=== PATIENT | female | born 1960 | race Caucasian/White ===

== ENCOUNTER 2018-08-30 16:25 | Inpatient (IN) ==
[2018-08-30] MEDS ORDERED: Loratadine 10 MG TABLET PO PRN (17:32)
[2018-08-30] MEDS ORDERED: MOM Conc 10 ML UD.LIQ PO PRN (17:32)
[2018-08-30] MEDS ORDERED: DICLOFENAC SODIUM TP PRN (17:32)
[2018-08-30] MEDS: *HR* OxyCODONE Immed Rel 5 MG TABLET PO PRN (20:29)
[2018-08-30] MEDS: traZODone 50 MG TABLET PO PRN (20:29)
[2018-08-30] MEDS: *HR* Enoxaparin 40 MG/0.4 ML SYRINGE SQ SCH (20:29)
[2018-08-31] MEDS: *HR* OxyCODONE Immed Rel 5 MG TABLET PO PRN ×3 (05:01→18:04)
[2018-08-31 05:54] LABS: Basophils % 0.6 %; Eosinophils # 0.2 K/mcL (0.0-0.6); Eosinophils % 3.2 %; Hematocrit 28.7 % (35.3-44.9); Hemoglobin 9.4 g/dL (11.5-15.4); Immature Granulocytes % 1.3 % (0-4); Lymphocytes # 1.4 K/mcL (0.6-4.6); Lymphocytes % 22.7 %; Mean Corpuscular HGB Conc 32.8 g/dL (31.6-35.5); Mean Corpuscular Hemoglobin 28.8 pg (28.0-33.3); Mean Platelet Volume 10.2 fL (9.4-12.4); Monocytes # 0.8 K/mcL (0.0-1.3); Neutrophils # 3.7 K/mcL (1.6-8.9); Platelet Count 230 K/mcL (140-400); Red Blood Count 3.26 M/mcL (3.82-4.97); Red Cell Distribution Width 14.3 % (11.5-14.5); Segmented Neutrophils % 59.2 %
[2018-08-31 06:10] LABS: Calcium 8.4 mg/dL (8.6-10.3); Carbon Dioxide 29 mEq/L (23-29); Chloride 100 mEq/L (98-107); Potassium 3.8 mEq/L (3.5-5.1); Sodium 134 mEq/L (136-145); eGFR For Non-African Americans > 60 (> 60)
[2018-08-31 06:15] LABS: BUN/Creatinine Ratio 22 (6-26); Blood Urea Nitrogen 14 mg/dL (6-20); Glucose 111 mg/dL (70-105); Osmolality,Calculated 279 (280-300)
--- NOTE | 2018-08-31 12:02 | Internal Med History&Physical ---
Date of Encounter: 08/31/18 Time of Encounter: 12:00 Assessment and Plan (1) Status post total hip replacement, left Current visit: Yes Status: Acute We will proceed with therapy assessment and plan. Advised that she elevate her leg when possible because of swelling. (2) Stage 2 chronic kidney disease Current visit: No Status: Chronic Patient denies. (3) Acute blood loss anemia Current visit: Yes Status: Acute This looks stable and is associated with good vital signs. She received 1 unit of transfusion, postoperatively. (4) Depression Current visit: No Status: Chronic Controlled on current medical regimen. Qualifiers: Depression Type: unspecified Qualified Code(s): F32.9 - Major depressive disorder, single episode, unspecified (5) Migraine Current visit: No Status: Chronic Treated with when necessary sumatriptan and rarely uses, anymore. Qualifiers: Migraine type: unspecified Status migrainosus presence: without status migrainosus Intractability: not intractable Qualified Code(s): G43.909 - Migraine, unspecified, not intractable, without status migrainosus Internal Medicine - H&P: HPI Admitted From: Hospital to Hospital Transfer Plans for Post Hospital Care: Home History of present illness: Ms. Rush is a 58 year old female who was in her usual state of health until 5 days ago when she fell on the ice. She had a hip fracture and this was repaired with a total hip replacement by Dr. Tariq at [facility]. Postoperative course was complicated by low blood pressure, anemia requiring transfusion of 1 unit, but no other problems. He is now transferred here for rehabilitation. Past Med Surg Social Fam HX - Past Medical History Medical history: GERD, migraine Psychiatric history: depression - Past Surgical History Surgical History: no surgical history - Social History Smoking Status: Never smoker Smokeless Tobacco Status: No Alcohol use: rarely Drug use: none - Family History Mother History Unknown: Yes Adopted: No Living Status: Still Living Hx Family Cardiac Disorders: Yes (HTN, STROKE) Hx Family Respiratory Disorders: No Hx Family Cancer: No Hx Family GI Disorders: No Hx Family Endocrine Disorder: No Hx Family Neuromuscular Disorders: No Hx Family Neurologic Disorders: No Hx Family HEENT Disorders: No Hx Family Autoimmune Disorders: No Internal Medicine - H&P: Meds Citalopram Hydrobromide [Citalopram HBr] 40 mg PO DAILY 08/26/18 [History] Diclofenac Sodium 1 applic TP QID PRN 08/26/18 [History] Loratadine [Allergy Relief] 10 mg PO DAILY PRN 08/26/18 [History] Omeprazole [PriLOSEC] 40 mg PO DAILY PRN 08/26/18 [History] Trazodone HCl 50 mg PO HS PRN 08/26/18 [History] Docusate [Colace] 100 mg PO BID capsule 08/28/18 [Rx] Enoxaparin [Lovenox] 30 mg SQ Q12HCO syringe 08/28/18 [Rx] Ferrous Sulfate 325 mg PO BIDWM #0 tablet 08/28/18 [Rx] MOM Conc [MILK OF MAGNESIA conc] 5 ml PO HS PRN ud.liq 08/28/18 [Rx] OxyCODONE Immed Rel [Roxicodone 5 MG] 5 mg PO Q6HR PRN 4 Days #15 tablet 08/28/18 [Rx] Allergy/AdvReac Type Severity Reaction Status Date / Time No Known Allergies Allergy Verified 08/26/18 11:30 All Systems PM: Patient states that she does not hear as well as she used to but does not wear hearing aids. She is told by her son-in-law that she has a possible sleep apnea but does not have a formal diagnosis and is to get a test, soon. She has occasional episodes of 2 hours or less of facial flushing and she is not sure what causes these. Patient has no complaint of chest discomfort, dyspnea, orthopnea, breathing problems, palpitations, nausea or vomiting, constipation or diarrhea, other changes in bowel habits, heartburn, difficulty with urination, kidney problems or kidney stones, fevers chills or sweats, rash or itching, seizures, headache or lightheadedness, heat or cold intolerance, blood problems or anemia, or other new complaints, except as mentioned above. Review of systems is otherwise negative. - Constitutional Vitals: Temp Pulse Resp BP Pulse Ox 98.6 F 97 18 135/74 99 08/31/18 11:49 08/31/18 11:49 08/31/18 11:49 08/31/18 11:49 08/31/18 11:49 Exam: Examination: (Except as mentioned above): General: In no apparent distress, alert and oriented 3. Head: Atraumatic and normocephalic. Eyes: Extraocular muscles are intact, pupils equal round and reactive to light and accommodation. Sclerae anicteric. Ears: External ears are normal to inspection and hearing is grossly normal. Nose: Patent without lesion noted. Mouth: No intraoral lesions seen. Dentition is unremarkable. Neck: Supple with trachea midline. There is no thyromegaly or adenopathy and carotids are 2+ without bruit heard. Respiratory: No use of accessory muscles. Lungs are clear throughout. Normal airflow. Cardiovascular: Regular rate and rhythm without murmur appreciated. Abdomen: Bowel sounds are normal. No hepatosplenomegaly masses or tenderness. Obese and therefore difficult to palpate deeply. Patient is examined upright in chair and this also limits exam. Extremities: No cyanosis clubbing but she does have 1+ diffuse edema on the left. She is not examined in terms of her wound, because of family present and the fact that she is sitting in chair. Neurological: A and O 3. Cranial nerves II through XII are intact. No focal deficits and no abnormal movements or postures. Skin: Warm and non-diaphoretic with no lesions noted. Breasts, pelvic and rectal: Not examined. Internal Med - H&P Results - Labs CBC & Chem 7: 08/31/18 05:25 08/31/18 05:25 Labs: Short CBC 08/31/18 Range/Units 05:25 WBC 6.2 (4.3-11.1) K/mcL Hgb 9.4 L (11.5-15.4) g/dL Hct 28.7 L (35.3-44.9) % Plt Count 230 (140-400) K/mcL Neutrophils # 3.7 (1.6-8.9) K/mcL BMP 08/31/18 05:25 Sodium 134 L Potassium 3.8 Chloride 100 Carbon Dioxide 29 BUN 14 Creatinine 0.65 Glucose 111 H Calcium 8.4 L
[2018-08-31] MEDS: *HR* Enoxaparin 40 MG/0.4 ML SYRINGE SQ SCH (21:11)
[2018-08-31] MEDS: traZODone 50 MG TABLET PO PRN (21:18)
[2018-09-01] MEDS: *HR* OxyCODONE Immed Rel 5 MG TABLET PO PRN ×2 (09:18→20:08)
--- NOTE | 2018-09-01 17:28 | Internal Med Progress Note ---
Date of Encounter: 09/01/18 Time of Encounter: 15:30 - Assessment and plan (1) Status post total hip replacement, left Current Visit: Yes Status: Acute Assessment and plan: Doing well and we will continue to work with therapies, etc. (2) Stage 2 chronic kidney disease Current Visit: No Status: Chronic Assessment and plan: Not present on current lab. (3) Acute blood loss anemia Current Visit: Yes Status: Acute Assessment and plan: Well-tolerated and clinically stable. (4) Depression Current Visit: No Status: Chronic Assessment and plan: No current signs or symptoms. Qualifiers: Depression Type: unspecified Qualified Code(s): F32.9 - Major depressive disorder, single episode, unspecified (5) Migraine Current Visit: No Status: Chronic Assessment and plan: None reported. Qualifiers: Migraine type: unspecified Status migrainosus presence: without status migrainosus Intractability: not intractable Qualified Code(s): G43.909 - Migraine, unspecified, not intractable, without status migrainosus - Subjective Interval history: Patient is without complaint. She is pleased that she moved her bowels. She still has fair amount of swelling in her left lower extremity. Patient has no complaint of chest discomfort, dyspnea, orthopnea, palpitations, nausea or vomiting, constipation or diarrhea, other changes in bowel habits, difficulty with urination, rash or itching, or other new complaints, except as mentioned above. Review of systems is otherwise negative. I discussed management of her care with nursing staff. - Constitutional Vitals: Temp Pulse Resp BP Pulse Ox 98.8 F 90 18 127/72 96 09/01/18 07:00 09/01/18 07:00 09/01/18 07:00 09/01/18 07:00 09/01/18 07:00 Exam: Examination: (Except as mentioned above): General: In no apparent distress. Alert and oriented 3. Nondiaphoretic. Head: Atraumatic and normocephalic. Respiratory: No use of accessory muscles. Lungs are clear throughout. Normal airflow. Cardiovascular: Regular rate and rhythm without murmur appreciated. Abdomen: Bowel sounds are normal. No hepatosplenomegaly mass or tenderness appreciated. Obese and therefore difficult to palpate deeply. Extremities: No cyanosis clubbing or significant edema. Wound site looks good w ithout any significant drainage, erythema, edema to suggest cellulitis, etc. Skin: Warm and non-diaphoretic with no new lesions noted. Internal Medicine: Result - Labs CBC & Chem 7: 08/31/18 05:25 08/31/18 05:25 Consult Discharge Plan - Plan Referrals: Betty Means MD [Primary Care Provider] -
[2018-09-01] MEDS: *HR* Enoxaparin 40 MG/0.4 ML SYRINGE SQ SCH (20:07)
[2018-09-02] MEDS: *HR* OxyCODONE Immed Rel 5 MG TABLET PO PRN ×4 (05:34→21:40)
[2018-09-02 05:49] LABS: Basophils # 0.1 K/mcL (0.0-0.2); Basophils % 0.7 %; Eosinophils # 0.3 K/mcL (0.0-0.6); Eosinophils % 3.5 %; Hematocrit 30.9 % (35.3-44.9); Hemoglobin 9.9 g/dL (11.5-15.4); Immature Granulocytes % 2.3 % (0-4); Lymphocytes # 1.7 K/mcL (0.6-4.6); Lymphocytes % 23.6 %; Mean Corpuscular Hemoglobin 28.4 pg (28.0-33.3); Mean Corpuscular Volume 88.5 fL (83.0-100.0); Mean Platelet Volume 9.9 fL (9.4-12.4); Monocytes % 13.4 %; Platelet Count 294 K/mcL (140-400); Red Blood Count 3.49 M/mcL (3.82-4.97); Red Cell Distribution Width 14.3 % (11.5-14.5); Segmented Neutrophils % 56.5 %
[2018-09-02 06:03] LABS: BUN/Creatinine Ratio 22 (6-26); Blood Urea Nitrogen 13 mg/dL (6-20); Calcium 8.7 mg/dL (8.6-10.3); Carbon Dioxide 28 mEq/L (23-29); Chloride 104 mEq/L (98-107); Glucose 114 mg/dL (70-105); Osmolality,Calculated 293 (280-300); Potassium 4.2 mEq/L (3.5-5.1); Sodium 141 mEq/L (136-145); eGFR For Non-African Americans > 60 (> 60)
--- NOTE | 2018-09-02 13:33 | Internal Med Progress Note ---
Addendum entered and electronically signed by Ralph Rebolledo MD 09/02/18 14:32: I have personally performed a face to face evaluation on this patient. I have r eviewed and agree with the care plan. History and Exam by me shows: Patient is doing well. She denies acute issues. We discussed going home later this week. She has more edema and has had her leg propped up on a small stool, on medication. I explained to her that she needs to have "toes higher than nose," several times a day. To this, she expressed surprise. Bowels have been moving well. Discussed care with other providers and/or nursing. Patient has no complaint of chest discomfort, dyspnea, orthopnea, palpitations, nausea or vomiting, constipation or diarrhea, other changes in bowel habits, difficulty with urination, rash or itching, or other new complaints, except as mentioned above. Review of systems is otherwise negative. Examination: (Except as mentioned above): General: In no apparent distress. Alert and oriented 3. Nondiaphoretic. Head: Atraumatic and normocephalic. Respiratory: No use of accessory muscles. Lungs are clear throughout. Normal airflow. Cardiovascular: Regular rate and rhythm without murmur appreciated. Abdomen: Bowel sounds are normal. No hepatosplenomegaly mass or tenderness appreciated. Obese and therefore difficult to palpate deeply. Extremities: No cyanosis clubbing or change in edema. She still has a fair amount of edema at the left lower extremity. Skin: Warm and non-diaphoretic with no new lesions noted. Original Note: Date of Encounter: 09/02/18 Time of Encounter: 13:30 - Assessment and plan (1) Status post total hip replacement, left Current Visit: Yes Status: Acute Assessment and plan: Continue PT and OT. Will follow progress. Continue current pain medication. Follow up with ortho as scheduled. Continue hip precautions. (2) Acute blood loss anemia Current Visit: Yes Status: Acute Assessment and plan: Hemoglobin 9.9. Continue to monitor labs. - Time Spent With Patient less than 15 minutes - Subjective Interval history: Participating well with therapy. Encourage to elevate left lower extremity to alleviate swelling. States pain is controlled with current medication. Maintaining appetite and hydration. Bowels moving as normal. Denies fever, chills, nausea, vomiting or diarrhea. Denies shortness of breath or chest pain. - Constitutional Vitals: Temp Pulse Resp BP Pulse Ox 98.4 F 98 14 135/78 96 09/02/18 08:00 09/02/18 08:00 09/02/18 08:00 09/02/18 08:00 09/02/18 08:00 General appearance: Present: A&O X 3, pleasant, no acute distress, answers questions appropriately - Head Head exam: Present: atraumatic, normocephalic - Eye Eye exam: Present: PERRL, conjuntiva pink, sclera anicteric Pupils: Present: PERRL - Neck Neck exam general surgery: Present: supple, trachea midline. Absent: lymphadenopathy - Respiratory Respiratory exam: Present: CTAB. Absent: accessory muscle use, rales, rhonchi, wheezes - Cardiovascular Cardiovascular exam: Present: RRR, +S1, +S2. Absent: diastolic murmur, gallop, rubs, systolic murmur - GI/Abdominal GI/Abdominal exam: Present: normal bowel sounds, soft, no peritoneal signs. Absent: distended, tenderness - Extremities Exam Extremities exam: Present: warm, radial pulses palpable and symmetrical. Absent: calf tenderness, cyanotic, pedal edema Additional comments: Left lower extremity non-pitting edema - Incison Comments: Left hip incision dressing dry and intact. Surrounding edema - Neurological Exam Neurological exam: Present: CN II-XII intact, oriented X3, no focal deficits. Absent: pronater drift, facial droop, speech deficit - Skin Skin exam: Present: dry, intact Internal Medicine: Result - Labs CBC & Chem 7: 09/02/18 05:15 09/02/18 05:15 Labs: Short CBC 09/02/18 Range/Units 05:15 WBC 7.1 (4.3-11.1) K/mcL Hgb 9.9 L (11.5-15.4) g/dL Hct 30.9 L (35.3-44.9) % Plt Count 294 (140-400) K/mcL Neutrophils # 4.0 (1.6-8.9) K/mcL BMP 09/02/18 05:15 Sodium 141 Potassium 4.2 Chloride 104 Carbon Dioxide 28 BUN 13 Creatinine 0.59 L Glucose 114 H Calcium 8.7 Consult Discharge Plan - Plan Referrals: Betty Means MD [Primary Care Provider] -
[2018-09-02] MEDS ORDERED: Acetaminophen 325 MG TABLET PO PRN (17:14)
--- NOTE | 2018-09-02 17:35 | Physcial Medicine-Consult Note ---
Date of Encounter: 09/02/18 Time of Encounter: 17:20 Physical Medicine - AP (1) Status post total hip replacement, left Status: Acute Assessment and plan: Good start in IPR. Therapists report good progress. Patient knows her hip precautions. We will add knee high ADILENE hose to help control some of the edema. She had a negative venous US for DVT and is on Enoxaparin. We will add a multivitamin to her Iron suppliment and encourage po intake to boost her blood production. I put her on a prn Acetaminophen 650mg Q6hrs. for report of a headache. Nursing will assess her BP, Pain level, Skin, Hip incision. PT will treat 3hrs daily for LE strengthening, transfers, mobility. OT will treat 3hrs daily for UE strengthening, functional transfers, ADLs. She will need to wear the LLE AFO for weeks to months depending on return of active left ankle dorsiflexion. Her prognosis is good. ELOS is 10 days to two weeks. Her barriers to progress are hip pain, Left foot drop, and Moderately severe anemia. Code(s): Z96.642 - Presence of left artificial hip joint SNOMED Code(s): 794008433553 Physical Medicine - HPI - Data of Consult Requesting Physician: Ralph Rebolledo MD Primary Care Provider: Betty Means MD - Consult Narrative History of present illness: Ms. Rush is a 58 year old RH female who fell on icy parking lot at work. She fell 08-26-2018. she was admitted to [facility] and under went left total hip replacement with Dr. Coleman on 08-26-2018. Her post op course was complicated by left foot drop and post op anemia. She required 1unit PRBCs. Her last hgb was 9 .9. She was admitted to [facility] IPR on 08-30-2018 in the evening. She currently complains of left hip ache adequately managed with Oxycodone 5mg Q 4hrs. She also has tingling in the lower leg and foot. She has been provided with a left AFO for the foot drop. She states her appetite is improving and she is eating more every day. She has been moving her bowels daily and passing her urine without discomfort. She is able to name her hip precautions. She note the swelling in her left leg and foot. CC: I fell and broke my left hip. Past Med Surg Social Fam HX - Past Medical History Attestation: Yes The following information was validated with the patient. Medical history: GERD, migraine Psychiatric history: depression - Past Surgical History Surgical History: no surgical history - Social History Smoking Status: Never smoker Smokeless Tobacco Status: No Alcohol use: rarely Drug use: none - Family History Mother History Unknown: Yes Adopted: No Living Status: Still Living Hx Family Cardiac Disorders: Yes (HTN, STROKE) Hx Family Respiratory Disorders: No Hx Family Cancer: No Hx Family GI Disorders: No Hx Family Endocrine Disorder: No Hx Family Neuromuscular Disorders: No Hx Family Neurologic Disorders: No Hx Family HEENT Disorders: No Hx Family Autoimmune Disorders: No Medications and Allergies Citalopram Hydrobromide [Citalopram HBr] 40 mg PO DAILY 08/26/18 [History] Diclofenac Sodium 1 applic TP QID PRN 08/26/18 [History] Loratadine [Allergy Relief] 10 mg PO DAILY PRN 08/26/18 [History] Omeprazole [PriLOSEC] 40 mg PO DAILY PRN 08/26/18 [History] Trazodone HCl 50 mg PO HS PRN 08/26/18 [History] Docusate [Colace] 100 mg PO BID capsule 08/28/18 [Rx] Enoxaparin [Lovenox] 30 mg SQ Q12HCO syringe 08/28/18 [Rx] Ferrous Sulfate 325 mg PO BIDWM #0 tablet 08/28/18 [Rx] MOM Conc [MILK OF MAGNESIA conc] 5 ml PO HS PRN ud.liq 08/28/18 [Rx] Allergy/AdvReac Type Severity Reaction Status Date / Time No Known Allergies Allergy Verified 08/26/18 11:30 All systems: reviewed and no additional remarkable complaints except as stated (HPI and PMH.) Physical Medicine - Exam - Constitutional Vitals: Temp Pulse Resp BP Pulse Ox 98.4 F 98 14 135/78 96 09/02/18 08:00 09/02/18 08:00 09/02/18 08:00 09/02/18 08:00 09/02/18 08:00 General appearance: average body habitus, cooperative, mild distress - Head Head exam: Present: atraumatic, normocephalic - Eye Eye exam: Present: EOMI, PERRL - ENT ENT exam: Present: mucous membranes moist, normal oropharynx - Neck Neck exam: Present: full ROM - Respiratory Respiratory exam: Present: CTAB - Cardiovascular Cardiovascular exam: Present: RRR, +S1, +S2. Absent: diastolic murmur, gallop, rubs, systolic murmur - GI/Abdominal GI/Abdominal exam: Present: normal bowel sounds, soft. Absent: tenderness - Extremities Exam Extremities exam: Present: joint swelling, normal capillary refill, pedal edema, tenderness. Absent: calf tenderness, full ROM Additional comments: The left leg has 2+-3+ pitting edema from proximal hip area down to the foot. No calf tenderness or Fabián's sign. Ankle dorsiflexion is absent. Plantarflexion 4/5, Knee extension 3+/5, Knee flexion 4/5. She does not have antigravity hip flexion. RLE and BUEs have 4+/5 strength throughout. 1+ edema in RLE. No calf pain. - Neurological Exam Neurological exam: Present: abnormal gait, alert, oriented X3, reflexes normal Additional comments: LLE diminished sensation to light touch from posterior thigh to foot. She is able to localize sensation, but states it doesn't feel the same as contralateral leg. She has normal sensation on left anterior thigh. - Psychiatric Psychiatric exam: Present: normal affect, normal mood - Skin Skin exam: Present: normal color Additional comments: Left hip incision is not taken down for observation. No physical evidence of pressure sores on the heels or sacral areas. Physical Medicine - Results - Labs CBC & Chem 7: 09/02/18 05:15 09/02/18 05:15 Labs: Short CBC 09/02/18 Range/Units 05:15 WBC 7.1 (4.3-11.1) K/mcL Hgb 9.9 L (11.5-15.4) g/dL Hct 30.9 L (35.3-44.9) % Plt Count 294 (140-400) K/mcL Neutrophils # 4.0 (1.6-8.9) K/mcL BMP 09/02/18 05:15 Sodium 141 Potassium 4.2 Chloride 104 Carbon Dioxide 28 BUN 13 Creatinine 0.59 L Glucose 114 H Calcium 8.7 Moderate anemia. Slight hyperglycemia Consult Discharge Plan - Plan Referrals: Betty Means MD [Primary Care Provider] -
[2018-09-02] MEDS: *HR* Enoxaparin 40 MG/0.4 ML SYRINGE SQ SCH (21:40)
[2018-09-02] MEDS: traZODone 50 MG TABLET PO PRN (21:43)
[2018-09-03] MEDS: Multivit/Ca/Min/Fe/FA 1 TAB TABLET PO SCH (08:42)
[2018-09-03] MEDS: *HR* OxyCODONE Immed Rel 5 MG TABLET PO PRN ×3 (08:42→21:11)
--- NOTE | 2018-09-03 11:03 | Internal Med Progress Note ---
Date of Encounter: 09/03/18 Time of Encounter: 11:01 - Assessment and plan (1) Status post total hip replacement, left Current Visit: Yes Status: Acute Assessment and plan: Continue PT and OT. Will follow progress. Continue current pain medication. Follow up with ortho as scheduled. Continue hip precautions. (2) Acute blood loss anemia Current Visit: Yes Status: Acute Assessment and plan: Hemoglobin 9.9. Continue to monitor labs. - Time Spent With Patient less than 15 minutes - Subjective Interval history: Participating well with therapy. Encourage to elevate left lower extremity to alleviate swelling. States pain is controlled with current medication. Maintaining appetite and hydration. Bowels moving as normal. Denies fever, chills, nausea, vomiting or diarrhea. Denies shortness of breath or chest pain. - Constitutional Vitals: Temp Pulse Resp BP Pulse Ox 98.5 F 100 14 126/78 95 09/03/18 09:12 09/03/18 09:12 09/03/18 09:12 09/03/18 09:12 09/03/18 09:12 General appearance: Present: A&O X 3, pleasant, no acute distress, answers questions appropriately - Head Head exam: Present: atraumatic, normocephalic - Eye Eye exam: Present: PERRL, conjuntiva pink, sclera anicteric Pupils: Present: PERRL - Neck Neck exam general surgery: Present: supple, trachea midline. Absent: lymphadenopathy - Respiratory Respiratory exam: Present: CTAB. Absent: accessory muscle use, rales, rhonchi, wheezes - Cardiovascular Cardiovascular exam: Present: RRR, +S1, +S2. Absent: diastolic murmur, gallop, rubs, systolic murmur - GI/Abdominal GI/Abdominal exam: Present: normal bowel sounds, soft, no peritoneal signs. Absent: distended, tenderness - Extremities Exam Extremities exam: Present: warm, radial pulses palpable and symmetrical. Absent: calf tenderness, cyanotic, pedal edema Additional comments: LLE minimal amt of nonpitting edema. no calf pain or tenderness. - Incison Comments: let hip incision drsg dry and intact. - Neurological Exam Neurological exam: Present: CN II-XII intact, oriented X3, no focal deficits. Absent: pronater drift, facial droop, speech deficit - Skin Skin exam: Present: dry, intact Internal Medicine: Result - Labs CBC & Chem 7: 09/02/18 05:15 09/02/18 05:15 Consult Discharge Plan - Plan Referrals: Betty Means MD [Primary Care Provider] -
[2018-09-03] MEDS: *HR* Enoxaparin 40 MG/0.4 ML SYRINGE SQ SCH (19:44)
[2018-09-03] MEDS: traZODone 50 MG TABLET PO PRN (21:11)
[2018-09-04] MEDS: *HR* OxyCODONE Immed Rel 5 MG TABLET PO PRN ×2 (07:43→16:56)
[2018-09-04] MEDS: Multivit/Ca/Min/Fe/FA 1 TAB TABLET PO SCH (07:43)
--- NOTE | 2018-09-04 09:25 | Internal Med Progress Note ---
Addendum entered and electronically signed by Ralph Rebolledo MD 09/04/18 14:23: I have personally performed a face to face evaluation on this patient. I have r eviewed and agree with the care plan. History and Exam by me shows: Patient is without complaint. She is doing well with therapies. Her independence has been increased, on the unit. We discussed elevation which she is still not doing consistently but says she will. Discussed care with other providers and/or nursing. Patient has no complaint of chest discomfort, dyspnea, orthopnea, palpitations, nausea or vomiting, constipation or diarrhea, other changes in bowel habits, difficulty with urination, rash or itching, or other new complaints, except as mentioned above. Review of systems is otherwise negative. Examination: (Except as mentioned above): General: In no apparent distress. Alert and oriented 3. Nondiaphoretic. Head: Atraumatic and normocephalic. Respiratory: No use of accessory muscles. Lungs are clear throughout. Normal airflow. Cardiovascular: Regular rate and rhythm without murmur appreciated. Abdomen: Bowel sounds are normal. No hepatosplenomegaly mass or tenderness appreciated. Obese and therefore difficult to palpate deeply. Patient is examined upright in chair and this also limits exam. Extremities: No cyanosis clubbing or edema. Skin: Warm and non-diaphoretic with no new lesions noted. Original Note: Date of Encounter: 09/04/18 Time of Encounter: 09:23 - Assessment and plan (1) Status post total hip replacement, left Current Visit: Yes Status: Acute Assessment and plan: No acute issues. Patient's exam appears unchanged from her admission to this facility. Patient continues to experience moderate weakness to left lower extremity on muscle strength and continues with paresthesia to left lower leg. Patient with left foot drop and brace and use. Surgical incision appears healthy and well dressing dry and intact. Patient states that pain has been well tolerated with current medications. Patient persists. Physical therapy and progressing well. Denies any constipation. We will continue with current plan of care. (2) Stage 2 chronic kidney disease Current Visit: No Status: Chronic Assessment and plan: No acute issues. Patient's labs were reviewed which shows no acute issues. We will continue with current medications. - Time Spent With Patient less than 15 minutes - Subjective Interval history: Patient appears relaxed and currently denies any discomforts or shortness of breath. Patient states she continues to have moderate weakness to left lower extremity, which has been acute since surgery. Patient also complains of a paresthesia type sensation to her left lower leg. Patient states that she only has a decreased sensation with tingling, but is able to distinguish between sharp and dull both medial and laterally. - Constitutional Vitals: Temp Pulse Resp BP Pulse Ox 98.1 F 106 16 119/64 96 09/04/18 06:51 09/04/18 06:51 09/04/18 06:51 09/04/18 06:51 09/04/18 06:51 General appearance: Present: A&O X 3, pleasant, no acute distress, answers questions appropriately - Head Head exam: Present: atraumatic, normocephalic - Eye Eye exam: Present: PERRL, conjuntiva pink, sclera anicteric Pupils: Present: PERRL - Neck Neck exam general surgery: Present: supple, trachea midline. Absent: lymphadenopathy - Respiratory Respiratory exam: Present: CTAB. Absent: accessory muscle use, rales, rhonchi, wheezes - Cardiovascular Cardiovascular exam: Present: RRR, +S1, +S2. Absent: diastolic murmur, gallop, rubs, systolic murmur - GI/Abdominal GI/Abdominal exam: Present: normal bowel sounds, soft, no peritoneal signs. Absent: distended, tenderness - Extremities Exam Extremities exam: Present: warm, radial pulses palpable and symmetrical. Absent: calf tenderness, cyanotic, pedal edema Additional comments: Left hip surgical incision dressing remains dry and intact. Minimal amount of edema noted to left hip and left leg. No ecchymosis noted. - Neurological Exam Neurological exam: Present: CN II-XII intact, oriented X3. Absent: pronater drift, facial droop, speech deficit Additional comments: Patient noted to have moderate weakness to left lower extremity. BUE and RLE with 5/5 MS. LLE with 3/5 MS for HF, 4/5 on KE/KF and PF. Left DF at 2/5 MS. Paresthesia noted to left lower legs. Proprioception normal to left foot. - Skin Skin exam: Present: dry, intact Internal Medicine: Result - Labs CBC & Chem 7: 09/02/18 05:15 09/02/18 05:15 Consult Discharge Plan - Plan Referrals: Betty Means MD [Primary Care Provider] -
--- NOTE | 2018-09-04 15:55 | Physical Med Progress Note ---
Date of Encounter: 09/04/18 Time of Encounter: 15:00 Assessment and Plan (1) Status post total hip replacement, left Current Visit: Yes Status: Acute Assessment and plan: She continues to make good progress. She will be independent on the unit. We discussed discharge disposition, going home vs going to her mother's house. Gabe angulo is doing 4 steps X2 at contact guard assist and my be able to ascend and descend her flight of stairs at home shortly after discharge. We will continue therapies as directed. She has a follow up with Dr. Coleman Thursday September 06, 2018. her discharge is set for 09-06-2018. She will need therapy in her aftercare 2-3 times per week for 4 weeks. Physical Medicine-PN: Subj Interval history: She states her appetite has improved and she is eating full meals now. Moving bowels three time daily. He normal at home is once every three days. Her hip pain is about the same. - Constitutional Vitals: Vital Signs Temp Pulse Resp BP Pulse Ox 09/04/18 06:51 98.1 F 106 16 119/64 96 09/03/18 18:54 98.4 F 108 17 124/75 98 Intake and Output 09/03/18 09/04/18 09/04/18 23:59 07:59 15:59 Intake Total 395 / 395 350 / 350 600 / 600 Balance 395 / 395 350 / 350 600 / 600 Intake: Oral 395 / 395 350 / 350 600 / 600 Other: Meal Dinner Lunch Percent of Meal Consumed 90% 100% # Voids 1 1 2 Weight 65.85 kg Patient Weight 09/04/18 23:59 Weight 65.85 kg General appearance: average body habitus, cooperative, mild distress - Head Head exam: Present: atraumatic, normocephalic - Extremities Exam Extremities exam: Present: joint swelling, pedal edema, tenderness. Absent: calf tenderness, full ROM Additional comments: She has slight left hip antigravity flexion. Slight toe and forefoot dorsiflex ion at 3/ Physical Medicine-PN: Obj Data - Labs CBC & Chem 7: 09/02/18 05:15 09/02/18 05:15 Consult Discharge Plan - Plan Referrals: Betty Means MD [Primary Care Provider] -
[2018-09-04] MEDS: *HR* Enoxaparin 40 MG/0.4 ML SYRINGE SQ SCH (20:39)
[2018-09-05] MEDS: *HR* OxyCODONE Immed Rel 5 MG TABLET PO PRN ×3 (08:02→21:00)
[2018-09-05] MEDS: Multivit/Ca/Min/Fe/FA 1 TAB TABLET PO SCH (08:02)
--- NOTE | 2018-09-05 10:42 | Internal Med Progress Note ---
Addendum entered and electronically signed by Ralph Rebolledo MD 09/05/18 12:14: I have personally performed a face to face evaluation on this patient. I have r eviewed and agree with the care plan. History and Exam by me shows: Patient has had a couple bowel movements morning and would like to discontinue her laxatives. I told her to use laxative as needed to have a bowel movement at least every other day, at home. She is pleased because she has less swelling in her lower extremity. I expressed the importance of elevation of her leg with toes higher than that, 4 times daily for 10-15 minutes at least. Discussed care with other providers and/or nursing. Patient has no complaint of chest discomfort, dyspnea, orthopnea, palpitations, nausea or vomiting, constipation or diarrhea, other changes in bowel habits, difficulty with urination, rash or itching, or other new complaints, except as mentioned above. Review of systems is otherwise negative. Examination: (Except as mentioned above): General: In no apparent distress. Alert and oriented 3. Nondiaphoretic. Head: Atraumatic and normocephalic. Respiratory: No use of accessory muscles. Lungs are clear throughout. Normal airflow. Cardiovascular: Regular rate and rhythm without murmur appreciated. Abdomen: Bowel sounds are normal. No hepatosplenomegaly mass or tenderness appr eciated. Obese and therefore difficult to palpate deeply. Extremities: No cyanosis clubbing , cord or calf tenderness. However she does have persistent edema although this is markedly improved versus yesterday or the day before. Skin: Warm and non-diaphoretic with no new lesions noted. Original Note: Date of Encounter: 09/05/18 Time of Encounter: 10:41 - Assessment and plan (1) Status post total hip replacement, left Current Visit: Yes Status: Acute Assessment and plan: No acute issues. Patient's exam appears unchanged from her admission to this facility. Patient continues to experience moderate weakness to left lower extremity on muscle strength and continues with paresthesia to left lower leg. Patient with left foot drop and brace and use. Surgical incision appears health y and well dressing dry and intact. Patient states that pain has been well tolerated with current medications. Physical therapy and progressing well. (2) Stage 2 chronic kidney disease Current Visit: No Status: Chronic Assessment and plan: No acute issues. Patient's labs were reviewed which shows no acute issues. We will continue with current medications. - Time Spent With Patient less than 15 minutes - Subjective Interval history: Patient appears relaxed and currently denies any discomforts or shortness of breath. Patient states she continues to have moderate weakness to left lower extremity, which has been acute since surgery. Patient continues with complaints of a paresthesia type sensation to her left lower leg. Patient states that she will be discharged home tomorrow - Constitutional Vitals: Temp Pulse Resp BP Pulse Ox 98.2 F 101 18 129/64 95 09/05/18 06:57 09/05/18 06:57 09/05/18 06:57 09/05/18 06:57 09/05/18 06:57 General appearance: Present: A&O X 3, pleasant, no acute distress, answers questions appropriately - Head Head exam: Present: atraumatic, normocephalic - Eye Eye exam: Present: PERRL, conjuntiva pink, sclera anicteric Pupils: Present: PERRL - Neck Neck exam general surgery: Present: supple, trachea midline. Absent: lymphadenopathy - Respiratory Respiratory exam: Present: CTAB. Absent: accessory muscle use, rales, rhonchi, wheezes - Cardiovascular Cardiovascular exam: Present: RRR, +S1, +S2. Absent: diastolic murmur, gallop, rubs, systolic murmur - GI/Abdominal GI/Abdominal exam: Present: normal bowel sounds, soft, no peritoneal signs. Absent: distended, tenderness - Extremities Exam Extremities exam: Present: warm, radial pulses palpable and symmetrical. Absent: calf tenderness, cyanotic, pedal edema Additional comments: Left hip surgical dressing appears dry and intact. Minimal edema noted to left hip and leg. - Neurological Exam Neurological exam: Present: CN II-XII intact, oriented X3. Absent: pronater drift, facial droop, speech deficit Additional comments: Patient continues with slight weakness to left lower extremity. LLE with MS 3/5 on HF, 4/5 KF/KE and PF. DF 3/5. RLE and BUE 5/5 MS. Patient with c/o paresthesia to LLE anterior leg, but able to distinguish sharp/dull. - Skin Skin exam: Present: dry, intact Internal Medicine: Result - Labs CBC & Chem 7: 09/02/18 05:15 09/02/18 05:15 Consult Discharge Plan - Plan Referrals: Betty Means MD [Primary Care Provider] -
--- NOTE | 2018-09-05 11:56 | Discharge Summary ---
Addendum entered and electronically signed by Ralph Rebolledo MD 09/09/18 11:03: Original Note: <Valentin Potter - Last Filed: 09/05/18 11:54> Date of Encounter: 09/06/18 - Discharge Diagnosis (1) Status post total hip replacement, left Priority: Primary Status: Acute (2) Stage 2 chronic kidney disease Priority: Secondary Status: Chronic Hospital course: Ms. Rush is a 58 year old female, who was in her usual state of health until 08/26/18, when she fell on the ice. She had a hip fracture and this was repaired with a total hip replacement by Dr. Tariq at [facility]. Postoperative course was complicated by low blood pressure, anemia requiring transfusion of 1 unit. Patient did experience mild paresis to left leg postoperatively. Patient has had complaints of paresthesia to her left anterior leg since her surgery. Patient is also experienced left foot drop. Patient was then transferred to this facility for further rehabilitation due to generalized weakness secondary to her left hip fracture and her current paresis. Patient participated in physical therapy and progressed well. Patient's pain has been well-tolerated with current pain medications. Patient's neurological exam has remained unchanged since her admission. Patient is to continue her physical therapy through outpatient services Discharge discussed with: patient Time spent discussing smoking cessation with patient: 3 to 10 minutes - Time Spent with Patient Total time spent providing and/or coordinating discharge services: Time spent: Less than 30 minutes - Discharge Medications Prescriptions: No Action Trazodone HCl 50 mg PO HS PRN PRN Reason: Sleep Omeprazole [PriLOSEC] 40 mg PO DAILY PRN PRN Reason: INDGESTION Loratadine [Allergy Relief] 10 mg PO DAILY PRN PRN Reason: Allergy Symptoms Diclofenac Sodium 1 applic TP QID PRN PRN Reason: Pain Citalopram Hydrobromide [Citalopram HBr] 40 mg PO DAILY Enoxaparin [Lovenox] 30 mg SQ Q12HCO syringe Docusate [Colace] 100 mg PO BID capsule Ferrous Sulfate 325 mg PO BIDWM #0 tablet MOM Conc [MILK OF MAGNESIA conc] 5 ml PO HS PRN [email or web address] PRN Reason: Constipation Home Medications: Citalopram Hydrobromide [Citalopram HBr] 40 mg PO DAILY 08/26/18 [History] Diclofenac Sodium 1 applic TP QID PRN 08/26/18 [History] Loratadine [Allergy Relief] 10 mg PO DAILY PRN 08/26/18 [History] Omeprazole [PriLOSEC] 40 mg PO DAILY PRN 08/26/18 [History] Trazodone HCl 50 mg PO HS PRN 08/26/18 [History] Docusate [Colace] 100 mg PO BID capsule 08/28/18 [Rx] Enoxaparin [Lovenox] 30 mg SQ Q12HCO syringe 08/28/18 [Rx] Ferrous Sulfate 325 mg PO BIDWM #0 tablet 08/28/18 [Rx] MOM Conc [MILK OF MAGNESIA conc] 5 ml PO HS PRN ud.[email or web address] 08/28/18 [Rx] Allergies/Adverse Reactions: Allergy/AdvReac Type Severity Reaction Status Date / Time No Known Allergies Allergy Verified 08/26/18 11:30 Date of admission: 08/30/18 17:03 Primary care physician: Betty Means MD Consults: 08/30/18 18:19 Consult to Physical Medicine/Rehab [CONS] Routine Reason for Consult: s/p left hip repair Call Completed: Yes 08/30/18 18:20 Consult to Occupational Therapy [CONS] Routine Comment: Evaluate, develop and implement POC Reason for Consult: s/p left hip repair Does patient have active BEDREST order?: No Is patient medically & hemodynamically stable?: Yes Patient assessed for mobility or mobilized this visit?: No Consult to Physical Therapy [CONS] Routine Comment: Evaluate, develop and implement POC Reason for Consult: s/p left hip repair Does patient have active BEDREST order?: No Is patient medically & hemodynamically stable?: Yes Patient assessed for mobility or mobilized this visit?: No Consult to Recreational Therapy [CONS] Routine Comment: Evaluate, develop and implement POC Consult to Digital Content Producer [CONS] Routine Reason for SW Consult: d/c planning s/p left hip repair. potential for follow up care after d/c. Discharging clinician: Ralph Rebolledo - Constitutional Vitals: Temp Pulse Resp BP Pulse Ox 98.2 F 101 18 129/64 95 09/05/18 06:57 09/05/18 06:57 09/05/18 06:57 09/05/18 06:57 09/05/18 06:57 General appearance: Present: A&O X 3, pleasant, no acute distress, answers questions appropriately - Head Head exam: Present: atraumatic, normocephalic - Eye Eye exam: Present: PERRL, conjuntiva pink, sclera anicteric Pupils: Present: PERRL - Neck Neck exam general surgery: Present: supple, trachea midline. Absent: lymphadenopathy - Respiratory Respiratory exam: Present: CTAB. Absent: accessory muscle use, rales, rhonchi, wheezes - Cardiovascular Cardiovascular exam: Present: RRR, +S1, +S2. Absent: diastolic murmur, gallop, rubs, systolic murmur - GI/Abdominal GI/Abdominal exam: Present: normal bowel sounds, soft, no peritoneal signs. Absent: distended, tenderness - Extremities Exam Extremities exam: Present: warm, radial pulses palpable and symmetrical. Absent: calf tenderness, cyanotic, pedal edema Additional comments: Left hip surgical dressing is dry and intact. Minimal amount of edema noted. No ecchymosis. - Neurological Exam Neurological exam: Present: CN II-XII intact, oriented X3. Absent: pronater drift, facial droop, speech deficit Additional comments: Left leg showing mild paresis with HF, KF/KE and PF at 4/5. PF 3/5. BUE and RLE at 5/5 MS. patient with complaints of paresthesia to left anterior leg, but able to distinguish between sharp and dull. - Skin Skin exam: Present: dry, intact - Patient Status Disposition: Home, Self-Care Condition: Good Functional capacity at discharge: uses cane/walker Overall status at discharge: patient is progressing back to baseline - Discharge Instructions Follow Up With: Diane Dumont PAC [Physician Business Operations Coordinator] - 09/13/18 11:15 am Betty Means MD [Primary Care Provider] - <Ralph Rebolledo - Last Filed: 09/06/18 11:32> Date of Encounter: 09/06/18 Time of Encounter: 10:50 - Discharge Diagnosis (1) Status post total hip replacement, left Priority: Primary Status: Acute (2) Stage 2 chronic kidney disease Priority: Secondary Status: Chronic (3) Acute blood loss anemia Priority: Secondary Status: Acute (4) Depression Priority: Secondary Status: Chronic Qualifiers: Depression Type: unspecified Qualified Code(s): F32.9 - Major depressive disorder, single episode, unspecified (5) Migraine Priority: Secondary Status: Chronic Qualifiers: Migraine type: unspecified Status migrainosus presence: without status migrainosus Intractability: not intractable Qualified Code(s): G43.909 - Migraine, unspecified, not intractable, without status migrainosus Hospital course: Ms. Rush is a 58 year old female who has done well with rehabilitation, after her left total hip replacement for a fracture. She has had constipation followed by loose stools so her bowel regimen is being adjusted. She has no complaints this morning and is looking forward to leaving the hospital. She has no Celexa where she is going for a week so she asked for a prescription for same and this was given. Patient has no complaint of chest discomfort, dyspnea, orthopnea, palpitations, nausea or vomiting, constipation or diarrhea, other changes in bowel habits, difficulty with urination, rash or itching, or other new complaints, except as mentioned above. Review of systems is otherwise negative. I discussed management of her care with nursing staff. The patient was prescribed 30 mg of Lovenox twice a day upon transfer here. We have been trying to find out if Dr. Coleman wants discontinued after the patient is discharged. However, he has a follow-up with the patient in his office, this afternoon so we deferred to him. - Time Spent with Patient Total time spent providing and/or coordinating discharge services: Date of admission: 08/30/18 17:03 Primary care physician: Betty Means MD Consults: 08/30/18 18:19 Consult to Physical Medicine/Rehab [CONS] Routine Reason for Consult: s/p left hip repair Call Completed: Yes 08/30/18 18:20 Consult to Occupational Therapy [CONS] Routine Comment: Evaluate, develop and implement POC Reason for Consult: s/p left hip repair Does patient have active BEDREST order?: No Is patient medically & hemodynamically stable?: Yes Patient assessed for mobility or mobilized this visit?: No Consult to Physical Therapy [CONS] Routine Comment: Evaluate, develop and implement POC Reason for Consult: s/p left hip repair Does patient have active BEDREST order?: No Is patient medically & hemodynamically stable?: Yes Patient assessed for mobility or mobilized this visit?: No Consult to Recreational Therapy [CONS] Routine Comment: Evaluate, develop and implement POC Consult to Digital Content Producer [CONS] Routine Reason for SW Consult: d/c planning s/p left hip repair. potential for follow up care after d/c. Anticipated date of discharge: 09/06/18 - Constitutional Vitals: Temp Pulse Resp BP Pulse Ox 98.4 F 90 18 123/73 95 09/06/18 07:27 09/06/18 07:27 09/06/18 07:27 09/06/18 07:27 09/06/18 07:27 Exam: Examination: (Except as mentioned above): General: In no apparent distress. Alert and oriented 3. Nondiaphoretic. Head: Atraumatic and normocephalic. Respiratory: No use of accessory muscles. Lungs are clear throughout. Normal airflow. Cardiovascular: Regular rate and rhythm without murmur appreciated. Abdomen: Bowel sounds are normal. No hepatosplenomegaly mass or tenderness appreciated. Obese and therefore difficult to palpate deeply.Patient is examined upright in chair and this also limits exam. Extremities: No cyanosis clubbing or significant change in edema. She has 1-2+ lower extremity edema but this is definitely improved versus a few days ago. There is no cord or calf tenderness. Skin: Warm and non-diaphoretic with no new lesions noted. - Diet and Activity Activity: as per physical therapy Diet: advance to your usual diet
[2018-09-05] MEDS: *HR* Enoxaparin 40 MG/0.4 ML SYRINGE SQ SCH (21:00)
[2018-09-06] MEDS: *HR* OxyCODONE Immed Rel 5 MG TABLET PO PRN ×2 (03:42→08:11)
[2018-09-06 07:28] VITALS: BP 123/73
[2018-09-06] MEDS: Multivit/Ca/Min/Fe/FA 1 TAB TABLET PO SCH (08:11)
== END 2018-09-06 11:37 | disposition home or self-care (01) | DRG 560 ==
LOC: INPGRE 17:03